=== PATIENT | male | born 1985 | race Caucasian/White ===

== ENCOUNTER 2017-10-05 05:38 | Emergency (ER) | payer OTHER ==
[2017-10-05] MEDS: predniSONE 20 MG TAB PO (06:52)
[2017-10-05] MEDS: ACETAMINOPHEN 325 MG TAB PO (06:52)
[2017-10-05] MEDS: SOD CHLORIDE 0.9% 1,000 ML IV ×2 (06:59→08:31)
[2017-10-05] MEDS: ALBUTEROL 0.5% (NEB) 2.5 MG/0.5 ML AMP INH (07:03)
[2017-10-05] MEDS: IPRATROPIUM (NEB) 0.5 MG/2.5 ML AMP INH (07:03)
[2017-10-05] MEDS: LORAZEPAM 2 MG INJ IV (09:00)
== END 2017-10-05 10:06 | disposition home or self-care (01) ==
LOC: E/R 05:38
DX: J20.9 Acute bronchitis, unspecified (principal); R00.0 Tachycardia, unspecified; F10.230 Alcohol dependence with withdrawal, uncomplicated; I10 Essential (primary) hypertension; E66.9 Obesity, unspecified; Z87.891 Personal history of nicotine dependence
CPT/HCPCS: 71045; 93005; 94644; 96374; 99284-25

== ENCOUNTER 2018-01-27 02:37 | Emergency (ER) | payer OTHER | END 2018-01-27 04:02 | disposition home or self-care (01) | LOC: FTE 02:37 | DX: L73.9 Follicular disorder, unspecified (principal); M54.5 Low back pain; J20.9 Acute bronchitis, unspecified; I10 Essential (primary) hypertension; F17.210 Nicotine dependence, cigarettes, uncomplicated | CPT/HCPCS: 99284; Z7502 ==

== ENCOUNTER 2018-01-28 07:46 | Inpatient (IN) | payer OTHER ==
[2018-01-28] MEDS ORDERED: ONDANSETRON 4 MG INJ IV ×3 (08:10→14:00)
[2018-01-28] MEDS ORDERED: SOD CHLORIDE 0.9% 1,000 ML IV (08:10)
[2018-01-28] MEDS ORDERED: morphine 4 MG/ML VIAL IV (08:10)
[2018-01-28 09:12] LABS: ADD MAN DIFF? NO
[2018-01-28 09:14] LABS: WHITE BLOOD COUNT 6.8 10^3/ul (4.8-10.8)
[2018-01-28 09:14] LABS: BASOPHILS % 0.4 % (0.0-2.0); EOSINOPHILS # 0.2 10^3/ul (0.0-0.5); EOSINOPHILS % 2.4 % (0.0-7.0); HEMATOCRIT 43.8 % (42.0-52.0); HEMOGLOBIN 15.4 g/dl (14.0-18.0); LYMPHOCYTES # 1.9 10^3/ul (0.8-2.9); LYMPHOCYTES % 28.1 % (15.0-51.0); MEAN CORPUSCULAR HEMOGLOBIN 30.4 pg (29.0-33.0); MEAN CORPUSCULAR HGB CONC 35.2 g/dl (32.0-37.0); MEAN CORPUSCULAR VOLUME 86.4 fl (82.0-101.0); MEAN PLATELET VOLUME 8.9 fl (7.4-10.4); MONOCYTE # 0.4 10^3/ul (0.3-0.9); MONOCYTES % 5.3 % (0.0-11.0); NEUTROPHIL # 4.3 10^3/ul (1.6-7.5); NEUTROPHILS % 63.5 % (39.0-77.0); PLATELET COUNT 348 10^3/UL (140-415); RED BLOOD COUNT 5.07 10^6/ul (4.70-6.10); RED CELL DISTRIBUTION WIDTH 14.5 % (11.5-14.5)
[2018-01-28 09:19] LABS: ADD UMIC YES; UR ASCORBIC ACID NEGATIVE (NEGATIVE); UR BILIRUBIN (Dip) NEGATIVE (NEGATIVE); UR BLOOD (Dip) NEGATIVE (NEGATIVE); UR CLARITY CLEAR (CLEAR); UR COLOR YELLOW (YELLOW); UR GLUCOSE (Dip) NEGATIVE (NEGATIVE); UR KETONES (Dip) NEGATIVE (NEGATIVE); UR LEUKOCYTE ESTERASE (Dip) NEGATIVE Leu/ul (NEGATIVE); UR MUCUS FEW /HPF (NONE SEEN); UR NITRITE (Dip) NEGATIVE (NEGATIVE); UR RBC 0 /HPF (0-5); UR SPECIFIC GRAVITY (Dip) 1.017 (1.003-1.030); UR TOTAL PROTEIN (Dip) 2+ mg/dl (NEGATIVE); UR UROBILINOGEN (Dip) NEGATIVE (NEGATIVE); UR WBC 0 /HPF (0-5)
[2018-01-28 09:32] LABS: ALANINE AMINOTRANSFERASE 131 IU/L (13-69); ALBUMIN 5.2 g/dl (3.3-4.9); ALKALINE PHOSPHATASE 106 IU/L (42-121); ANION GAP 21 (8-16); ASPARTATE AMINO TRANSFERASE 90 IU/L (15-46); BILIRUBIN,INDIRECT 0.4 mg/dl (0-1.1); BILIRUBIN,TOTAL 0.4 mg/dl (0.2-1.3); BLOOD UREA NITROGEN 13 mg/dl (7-20); CALCIUM 9.8 mg/dl (8.4-10.2); CARBON DIOXIDE 23 mmol/L (21-31); CHLORIDE 106 mmol/L (97-110); CREATININE 0.73 mg/dl (0.61-1.24); GLUCOSE 118 mg/dl (70-220); POTASSIUM 4.2 mmol/L (3.5-5.1); SODIUM 146 mmol/L (135-144); TOTAL PROTEIN 8.9 g/dl (6.1-8.1)
[2018-01-28 10:05] LABS: LIPASE 6579 U/L (23-300)
[2018-01-28] MEDS: SOD CHLORIDE 0.9% 1,000 ML IV ×3 (10:17→22:33)
[2018-01-28] MEDS: ONDANSETRON 4 MG INJ IV (11:13)
[2018-01-28] MEDS: morphine 4 MG/ML VIAL IV (11:13)
[2018-01-28] MEDS ORDERED: ACETAMINOPHEN 325 MG TAB PO (13:00)
[2018-01-28] MEDS: HYDROmorphONE 2 MG/ML SYG IV (13:17)
[2018-01-28] MEDS ORDERED: NACL 0.9% 3 ML SYG IV (14:00)
[2018-01-28] MEDS: HYDROmorphONE 0.5 MG/0.5 ML SYG IV ×3 (14:28→21:08)
[2018-01-28] MEDS ORDERED: LORAZEPAM 2 MG INJ IV (15:30)
[2018-01-28 15:44] LABS: FREE T4 (FREE THYROXINE) 0.73 ng/dl (0.79-2.35)
[2018-01-28 15:56] LABS: HEMOGLOBIN A1C 5.7 % (0-5.9)
[2018-01-28] MEDS: CHLORDIAZEPOXIDE 25 MG CAP PO ×2 (16:21→21:14)
[2018-01-28 18:51] LABS: AMPHETAMINE/METHAMPHETAMINE Negative (NEGATIVE); BARBITURATES Negative (NEGATIVE); BENZODIAZEPINES Negative (NEGATIVE); CANNABINOIDS Negative (NEGATIVE); COCAINE Negative (NEGATIVE); OPIATES Positive (NEGATIVE)
[2018-01-29] MEDS: HYDROmorphONE 0.5 MG/0.5 ML SYG IV ×5 (01:32→19:53)
[2018-01-29 05:35] LABS: ADD MAN DIFF? NO
[2018-01-29] MEDS: SOD CHLORIDE 0.9% 1,000 ML IV ×3 (05:41→21:43)
[2018-01-29 05:45] LABS: BASOPHILS % 0.5 % (0.0-2.0); EOSINOPHILS # 0.1 10^3/ul (0.0-0.5); HEMATOCRIT 39.8 % (42.0-52.0); HEMOGLOBIN 13.6 g/dl (14.0-18.0); LYMPHOCYTES # 1.1 10^3/ul (0.8-2.9); MEAN CORPUSCULAR HEMOGLOBIN 30.2 pg (29.0-33.0); MEAN CORPUSCULAR HGB CONC 34.2 g/dl (32.0-37.0); MEAN CORPUSCULAR VOLUME 88.2 fl (82.0-101.0); MONOCYTE # 0.4 10^3/ul (0.3-0.9); MONOCYTES % 7.5 % (0.0-11.0); NEUTROPHIL # 4.2 10^3/ul (1.6-7.5); NEUTROPHILS % 71.8 % (39.0-77.0); PLATELET COUNT 230 10^3/UL (140-415); RED BLOOD COUNT 4.51 10^6/ul (4.70-6.10); RED CELL DISTRIBUTION WIDTH 14.2 % (11.5-14.5)
[2018-01-29 05:45] LABS: WHITE BLOOD COUNT 5.9 10^3/ul (4.8-10.8)
[2018-01-29 06:05] LABS: PHOSPHORUS 4.1 mg/dl (2.5-4.9)
[2018-01-29 06:05] LABS: CHOL/HDL RATIO 3.3 RATIO; CHOLESTEROL 196 mg/dl (100-200); HDL CHOLESTEROL 59 mg/dl (28-63); LDL CHOLESTEROL,CALCULATED 73 mg/dl; MAGNESIUM 1.2 mg/dl (1.7-2.5); TRIGLYCERIDES 321 mg/dl (0-149)
[2018-01-29 06:16] LABS: ALANINE AMINOTRANSFERASE 89 IU/L (13-69); ALBUMIN 4.2 g/dl (3.3-4.9); ALBUMIN/GLOBULIN RATIO 1.27; ALKALINE PHOSPHATASE 101 IU/L (42-121); AMYLASE 156 U/L (11-123); ANION GAP 15 (8-16); ASPARTATE AMINO TRANSFERASE 58 IU/L (15-46); BILIRUBIN,INDIRECT 1.3 mg/dl (0-1.1); BILIRUBIN,TOTAL 1.3 mg/dl (0.2-1.3); BLOOD UREA NITROGEN 9 mg/dl (7-20); CARBON DIOXIDE 23 mmol/L (21-31); CHLORIDE 106 mmol/L (97-110); CREATININE 0.59 mg/dl (0.61-1.24); GLUCOSE 100 mg/dl (70-220); POTASSIUM 3.9 mmol/L (3.5-5.1); SODIUM 140 mmol/L (135-144); TOTAL PROTEIN 7.5 g/dl (6.1-8.1)
[2018-01-29 06:41] LABS: LIPASE 2477 U/L (23-300)
[2018-01-29] MEDS: CHLORDIAZEPOXIDE 25 MG CAP PO ×3 (08:22→21:03)
[2018-01-29] MEDS: AMLODIPINE 5 MG TAB PO (08:22)
[2018-01-29] MEDS: FISH OIL 1,000 MG CAP PO ×2 (08:23→21:03)
[2018-01-29] MEDS: MAGNESIUM SULFATE 2 GM/50 ML 50 ML IVPB ×2 (08:23→10:53)
[2018-01-29] MEDS: MULTIVITAMINS 10 ML, THIAMINE 100 MG, FOLIC ACID 1 MG in SOD CHLORIDE 0.9% 1,000 ML IVPB (08:24)
[2018-01-29] MEDS ORDERED: hydrALAzine 20 MG INJ IV (08:30)
[2018-01-29] MEDS: traMADol 50 MG TAB PO (09:02)
[2018-01-30] MEDS: HYDROmorphONE 0.5 MG/0.5 ML SYG IV ×3 (00:08→08:58)
[2018-01-30] MEDS: SOD CHLORIDE 0.9% 1,000 ML IV ×3 (02:32→20:30)
[2018-01-30 05:39] LABS: ADD MAN DIFF? NO
[2018-01-30 05:45] LABS: BASOPHILS % 0.2 % (0.0-2.0); EOSINOPHILS # 0.2 10^3/ul (0.0-0.5); EOSINOPHILS % 5.2 % (0.0-7.0); HEMATOCRIT 37.4 % (42.0-52.0); LYMPHOCYTES % 20.6 % (15.0-51.0); MEAN CORPUSCULAR HEMOGLOBIN 30.5 pg (29.0-33.0); MEAN CORPUSCULAR HGB CONC 34.8 g/dl (32.0-37.0); MEAN CORPUSCULAR VOLUME 87.8 fl (82.0-101.0); MEAN PLATELET VOLUME 9.2 fl (7.4-10.4); MONOCYTE # 0.3 10^3/ul (0.3-0.9); MONOCYTES % 6.3 % (0.0-11.0); NEUTROPHIL # 3.1 10^3/ul (1.6-7.5); NEUTROPHILS % 67.5 % (39.0-77.0); PLATELET COUNT 203 10^3/UL (140-415); RED BLOOD COUNT 4.26 10^6/ul (4.70-6.10); RED CELL DISTRIBUTION WIDTH 13.7 % (11.5-14.5)
[2018-01-30 05:45] LABS: WHITE BLOOD COUNT 4.6 10^3/ul (4.8-10.8)
[2018-01-30 06:05] LABS: PHOSPHORUS 3.2 mg/dl (2.5-4.9)
[2018-01-30 06:05] LABS: MAGNESIUM 1.8 mg/dl (1.7-2.5)
[2018-01-30 06:10] LABS: ALANINE AMINOTRANSFERASE 81 IU/L (13-69); ALBUMIN 4.2 g/dl (3.3-4.9); ALKALINE PHOSPHATASE 108 IU/L (42-121); AMYLASE 65 U/L (11-123); ANION GAP 17 (8-16); ASPARTATE AMINO TRANSFERASE 65 IU/L (15-46); BLOOD UREA NITROGEN 6 mg/dl (7-20); CARBON DIOXIDE 23 mmol/L (21-31); CHLORIDE 105 mmol/L (97-110); CREATININE 0.58 mg/dl (0.61-1.24); GLUCOSE 83 mg/dl (70-220); LIPASE 486 U/L (23-300); POTASSIUM 3.9 mmol/L (3.5-5.1); SODIUM 141 mmol/L (135-144); TOTAL PROTEIN 7.7 g/dl (6.1-8.1)
[2018-01-30] MEDS: MULTIVITAMINS 10 ML, THIAMINE 100 MG, FOLIC ACID 1 MG in SOD CHLORIDE 0.9% 1,000 ML IVPB (08:57)
[2018-01-30] MEDS: FISH OIL 1,000 MG CAP PO ×2 (08:58→20:29)
[2018-01-30] MEDS: CHLORDIAZEPOXIDE 25 MG CAP PO ×3 (08:58→20:29)
[2018-01-30] MEDS: AMLODIPINE 5 MG TAB PO (08:58)
[2018-01-31] MEDS: SOD CHLORIDE 0.9% 1,000 ML IV ×3 (04:36→21:57)
[2018-01-31] MEDS: HYDROmorphONE 0.5 MG/0.5 ML SYG IV (04:40)
[2018-01-31 06:22] LABS: ADD MAN DIFF? NO
[2018-01-31 06:35] LABS: BASOPHILS % 0.4 % (0.0-2.0); EOSINOPHILS # 0.2 10^3/ul (0.0-0.5); EOSINOPHILS % 4.6 % (0.0-7.0); HEMOGLOBIN 12.9 g/dl (14.0-18.0); LYMPHOCYTES # 0.9 10^3/ul (0.8-2.9); LYMPHOCYTES % 18.8 % (15.0-51.0); MEAN CORPUSCULAR HEMOGLOBIN 30.4 pg (29.0-33.0); MEAN CORPUSCULAR HGB CONC 34.9 g/dl (32.0-37.0); MEAN CORPUSCULAR VOLUME 87.3 fl (82.0-101.0); MEAN PLATELET VOLUME 9.4 fl (7.4-10.4); MONOCYTE # 0.4 10^3/ul (0.3-0.9); MONOCYTES % 7.8 % (0.0-11.0); NEUTROPHIL # 3.4 10^3/ul (1.6-7.5); NEUTROPHILS % 67.8 % (39.0-77.0); PLATELET COUNT 225 10^3/UL (140-415); RED BLOOD COUNT 4.24 10^6/ul (4.70-6.10); RED CELL DISTRIBUTION WIDTH 13.4 % (11.5-14.5)
[2018-01-31 06:52] LABS: MAGNESIUM 1.7 mg/dl (1.7-2.5)
[2018-01-31 06:52] LABS: PHOSPHORUS 3.2 mg/dl (2.5-4.9)
[2018-01-31 06:59] LABS: ALANINE AMINOTRANSFERASE 86 IU/L (13-69); ALBUMIN 4.3 g/dl (3.3-4.9); ALBUMIN/GLOBULIN RATIO 1.19; ALKALINE PHOSPHATASE 129 IU/L (42-121); AMYLASE 51 U/L (11-123); ANION GAP 19 (8-16); ASPARTATE AMINO TRANSFERASE 96 IU/L (15-46); BILIRUBIN,INDIRECT 0.6 mg/dl (0-1.1); BILIRUBIN,TOTAL 0.6 mg/dl (0.2-1.3); BLOOD UREA NITROGEN 5 mg/dl (7-20); CALCIUM 9.2 mg/dl (8.4-10.2); CARBON DIOXIDE 20 mmol/L (21-31); CHLORIDE 105 mmol/L (97-110); CREATININE 0.58 mg/dl (0.61-1.24); GLUCOSE 84 mg/dl (70-220); LIPASE 347 U/L (23-300); SODIUM 140 mmol/L (135-144); TOTAL PROTEIN 7.9 g/dl (6.1-8.1)
[2018-01-31] MEDS: FISH OIL 1,000 MG CAP PO ×2 (08:13→20:35)
[2018-01-31] MEDS: AMLODIPINE 5 MG TAB PO (08:14)
[2018-01-31] MEDS: CHLORDIAZEPOXIDE 25 MG CAP PO ×4 (08:14→20:36)
[2018-01-31] MEDS: MULTIVITAMINS 10 ML, THIAMINE 100 MG, FOLIC ACID 1 MG in SOD CHLORIDE 0.9% 1,000 ML IVPB (08:16)
[2018-01-31 12:26] LABS: HAAIG REFLEX REFLEX FILED
[2018-01-31 13:18] LABS: HEPATITIS B SURFACE ANTIGEN NEGATIVE (NEGATIVE)
[2018-01-31 13:36] LABS: HEPATITIS B CORE ANTIBODY NEGATIVE (NEGATIVE); HEPATITIS C VIRAL ANTIBODY NEGATIVE (NEGATIVE)
[2018-02-01 06:12] LABS: ADD MAN DIFF? NO
[2018-02-01 06:16] LABS: BASOPHILS % 0.2 % (0.0-2.0); EOSINOPHILS # 0.2 10^3/ul (0.0-0.5); EOSINOPHILS % 5.1 % (0.0-7.0); HEMATOCRIT 37.5 % (42.0-52.0); HEMOGLOBIN 12.8 g/dl (14.0-18.0); LYMPHOCYTES # 0.9 10^3/ul (0.8-2.9); LYMPHOCYTES % 20.7 % (15.0-51.0); MEAN CORPUSCULAR HGB CONC 34.1 g/dl (32.0-37.0); MEAN PLATELET VOLUME 9.1 fl (7.4-10.4); MONOCYTE # 0.4 10^3/ul (0.3-0.9); MONOCYTES % 9.7 % (0.0-11.0); NEUTROPHIL # 2.9 10^3/ul (1.6-7.5); NEUTROPHILS % 63.9 % (39.0-77.0); PLATELET COUNT 238 10^3/UL (140-415); RED BLOOD COUNT 4.26 10^6/ul (4.70-6.10); RED CELL DISTRIBUTION WIDTH 13.6 % (11.5-14.5)
[2018-02-01 06:16] LABS: WHITE BLOOD COUNT 4.5 10^3/ul (4.8-10.8)
[2018-02-01 06:46] LABS: LIPASE 344 U/L (23-300)
[2018-02-01 06:50] LABS: ANION GAP 14 (8-16); BLOOD UREA NITROGEN 4 mg/dl (7-20); CALCIUM 9.1 mg/dl (8.4-10.2); CARBON DIOXIDE 22 mmol/L (21-31); CHLORIDE 110 mmol/L (97-110); CREATININE 0.61 mg/dl (0.61-1.24); GLUCOSE 100 mg/dl (70-220); SODIUM 142 mmol/L (135-144)
[2018-02-01] MEDS: SOD CHLORIDE 0.9% 1,000 ML IV ×2 (06:51→13:43)
[2018-02-01] MEDS: FISH OIL 1,000 MG CAP PO (08:46)
[2018-02-01] MEDS: CHLORDIAZEPOXIDE 25 MG CAP PO ×2 (08:46→12:45)
[2018-02-01] MEDS: AMLODIPINE 5 MG TAB PO (08:47)
[2018-02-01] MEDS: MULTIVITAMINS 10 ML, THIAMINE 100 MG, FOLIC ACID 1 MG in SOD CHLORIDE 0.9% 1,000 ML IVPB (11:47)
== END 2018-02-01 16:10 | disposition home or self-care (01) | DRG 439 ==
LOC: FTE 07:46 → MS2 12:43
PROVIDERS: Internal Medicine
DX: K85.20 Alcohol induced acute pancreatitis without necrosis or infection (principal); Z68.41 Body mass index [BMI] 40.0-44.9, adult; E66.9 Obesity, unspecified; Z71.3 Dietary counseling and surveillance; I10 Essential (primary) hypertension; E78.1 Pure hyperglyceridemia; E88.89 Other specified metabolic disorders; K76.89 Other specified diseases of liver; E11.9 Type 2 diabetes mellitus without complications
CPT/HCPCS: 71045; 74176; 80048; 80053; 80061; 80307; 81001; 82150; 83036; 83690; 83735; 84100; 84439; 84443; 85025; 86704; 86709; 86803; 87340; 93005; 96361; 96374; 96375; 99285-25

== ENCOUNTER 2018-06-01 21:28 | Inpatient (IN) | payer OTHER ==
[2018-06-01] MEDS: LIDOCAINE/MYLANTA 40 ML BTL PO (22:12)
[2018-06-01] MEDS: ONDANSETRON 4 MG INJ IV ×2 (22:12→23:55)
[2018-06-01] MEDS: BELLADONNA/PHENOBARBITAL TAB PO (22:12)
[2018-06-01] MEDS: LORAZEPAM 2 MG INJ IV (22:12)
[2018-06-01] MEDS: FUROSEMIDE 40 MG INJ IV (22:12)
[2018-06-01] MEDS: SOD CHLORIDE 0.9% 1,000 ML IV (22:13)
[2018-06-01 22:28] LABS: ADD MAN DIFF? NO
[2018-06-01 22:33] LABS: ADD UMIC YES; UR ASCORBIC ACID NEGATIVE (NEGATIVE); UR BILIRUBIN (Dip) NEGATIVE (NEGATIVE); UR BLOOD (Dip) 1+ mg/dL (NEGATIVE); UR CLARITY CLEAR (CLEAR); UR COLOR YELLOW (YELLOW); UR GLUCOSE (Dip) NEGATIVE (NEGATIVE); UR KETONES (Dip) TRACE mg/dL (NEGATIVE); UR LEUKOCYTE ESTERASE (Dip) NEGATIVE Leu/ul (NEGATIVE); UR MUCUS FEW /HPF (NONE SEEN); UR NITRITE (Dip) NEGATIVE (NEGATIVE); UR RBC 0 /HPF (0-5); UR SPECIFIC GRAVITY (Dip) 1.023 (1.003-1.030); UR TOTAL PROTEIN (Dip) 3+ mg/dl (NEGATIVE); UR UROBILINOGEN (Dip) NEGATIVE (NEGATIVE); UR WBC 1 /HPF (0-5)
[2018-06-01 22:34] LABS: WHITE BLOOD COUNT 11.4 10^3/ul (4.8-10.8)
[2018-06-01 22:34] LABS: BASOPHILS % 0.3 % (0.0-2.0); EOSINOPHILS % 0.1 % (0.0-7.0); HEMATOCRIT 44.7 % (42.0-52.0); HEMOGLOBIN 15.9 g/dl (14.0-18.0); LYMPHOCYTES % 8.9 % (15.0-51.0); MEAN CORPUSCULAR HEMOGLOBIN 31.4 pg (29.0-33.0); MEAN CORPUSCULAR HGB CONC 35.6 g/dl (32.0-37.0); MEAN CORPUSCULAR VOLUME 88.3 fl (82.0-101.0); MEAN PLATELET VOLUME 9.2 fl (7.4-10.4); MONOCYTE # 0.5 10^3/ul (0.3-0.9); MONOCYTES % 4.3 % (0.0-11.0); NEUTROPHIL # 9.8 10^3/ul (1.6-7.5); PLATELET COUNT 242 10^3/UL (140-415); RED BLOOD COUNT 5.06 10^6/ul (4.70-6.10); RED CELL DISTRIBUTION WIDTH 13.2 % (11.5-14.5)
[2018-06-01 22:49] LABS: ALANINE AMINOTRANSFERASE 136 IU/L (13-69); ALBUMIN 4.6 g/dl (3.3-4.9); ALBUMIN/GLOBULIN RATIO 1.21; ALKALINE PHOSPHATASE 142 IU/L (42-121); ANION GAP 22 (5-13); ASPARTATE AMINO TRANSFERASE 165 IU/L (15-46); BILIRUBIN,INDIRECT 0.7 mg/dl (0-1.1); BILIRUBIN,TOTAL 0.7 mg/dl (0.2-1.3); BLOOD UREA NITROGEN 11 mg/dl (7-20); CALCIUM 9.1 mg/dl (8.4-10.2); CARBON DIOXIDE 16 mmol/L (21-31); CHLORIDE 97 mmol/L (97-110); CREATININE 0.59 mg/dl (0.61-1.24); Estimated GFR > 60 mL/min (>60); GLUCOSE 134 mg/dl (70-220); POTASSIUM 3.7 mmol/L (3.5-5.1); SODIUM 135 mmol/L (135-144); TOTAL PROTEIN 8.4 g/dl (6.1-8.1)
[2018-06-01 22:50] LABS: INR 0.96; PROTIME 12.9 Sec (11.9-14.9)
[2018-06-01 22:55] LABS: AMPHETAMINE/METHAMPHETAMINE Negative (NEGATIVE); BARBITURATES Negative (NEGATIVE); BENZODIAZEPINES Negative (NEGATIVE); CANNABINOIDS Negative (NEGATIVE); COCAINE Negative (NEGATIVE); OPIATES Negative (NEGATIVE)
[2018-06-01 23:03] LABS: B-TYPE NATRIURETIC PEPTIDE 224 PG/ML (0-125); TROPONIN-I < 0.012 ng/ml (0.000-0.120)
[2018-06-01 23:13] LABS: LIPASE 4954 U/L (23-300)
[2018-06-01] MEDS: FENTAnyl 50 MCG/ML VIAL IV (23:55)
[2018-06-02 00:16] LABS: LACTATE DEHYDROGENASE 970 IU/L (313-618)
[2018-06-02] MEDS ORDERED: ACETAMINOPHEN 325 MG TAB PO (00:30)
[2018-06-02] MEDS: FOLIC ACID 1 MG TAB PO (01:05)
[2018-06-02] MEDS: THIAMINE 100 MG TAB PO ×2 (01:11→08:26)
[2018-06-02] MEDS ORDERED: NACL 0.9% 3 ML SYG IV (01:30)
[2018-06-02] MEDS: HYDROmorphONE 0.5 MG/0.5 ML SYG IV ×3 (01:54→23:43)
[2018-06-02] MEDS: LACTATED RINGER'S 1,000 ML IV ×2 (02:26→06:45)
[2018-06-02] MEDS: HYDROCODONE/APAP (5/325) TAB PO (02:31)
[2018-06-02] MEDS: ONDANSETRON 4 MG INJ IV ×2 (03:34→08:26)
[2018-06-02] MEDS: HYDROmorphONE 2 MG/ML SYG IV ×6 (04:15→18:08)
[2018-06-02] MEDS: PANTOPRAZOLE 40 MG INJ IV (06:45)
[2018-06-02] MEDS: NICOTINE (14 MG/24 HR) PATCH TRANSDERM (08:25)
[2018-06-02] MEDS: AMLODIPINE 10 MG TAB PO (08:30)
[2018-06-02] MEDS: LISINOPRIL 20 MG TAB PO (08:30)
[2018-06-02] MEDS: SOD CHLORIDE 0.9% 1,000 ML IV ×2 (10:00→20:18)
[2018-06-02] MEDS: MULTIVITAMINS 10 ML, THIAMINE 100 MG, FOLIC ACID 1 MG in SOD CHLORIDE 0.9% 1,000 ML IVPB (12:45)
[2018-06-02] MEDS: CHLORDIAZEPOXIDE 25 MG CAP PO ×2 (12:45→20:16)
[2018-06-02] MEDS: LORAZEPAM 2 MG INJ IV (19:52)
[2018-06-02] MEDS: ATORVASTATIN 10 MG TAB PO (20:16)
[2018-06-03] MEDS: LORAZEPAM 2 MG INJ IV (01:04)
[2018-06-03] MEDS: HYDROmorphONE 2 MG/ML SYG IV ×2 (03:24→05:36)
[2018-06-03] MEDS: SOD CHLORIDE 0.9% 1,000 ML IV ×3 (03:25→16:39)
[2018-06-03] MEDS: PANTOPRAZOLE 40 MG INJ IV (05:36)
[2018-06-03 05:41] LABS: ABNORMAL IP MESSAGE 1; HEMATOCRIT 43.7 % (42.0-52.0); HEMOGLOBIN 15.5 g/dl (14.0-18.0); MEAN CORPUSCULAR HEMOGLOBIN 31.8 pg (29.0-33.0); MEAN CORPUSCULAR HGB CONC 35.5 g/dl (32.0-37.0); MEAN CORPUSCULAR VOLUME 89.7 fl (82.0-101.0); MEAN PLATELET VOLUME 9.9 fl (7.4-10.4); PLATELET COUNT 175 10^3/UL (140-415); POSITIVE DIFF @See below; RED BLOOD COUNT 4.87 10^6/ul (4.70-6.10); RED CELL DISTRIBUTION WIDTH 13.3 % (11.5-14.5)
[2018-06-03 05:41] LABS: WHITE BLOOD COUNT 8.5 10^3/ul (4.8-10.8)
[2018-06-03 05:52] LABS: ADD MAN DIFF? YES
[2018-06-03 06:21] LABS: ALANINE AMINOTRANSFERASE 73 IU/L (13-69); ALBUMIN 3.4 g/dl (3.3-4.9); ALBUMIN/GLOBULIN RATIO 1.47; ALKALINE PHOSPHATASE 102 IU/L (42-121); ANION GAP 14 (5-13); ASPARTATE AMINO TRANSFERASE 106 IU/L (15-46); BILIRUBIN,INDIRECT 1.2 mg/dl (0-1.1); BILIRUBIN,TOTAL 1.2 mg/dl (0.2-1.3); BLOOD UREA NITROGEN 23 mg/dl (7-20); CALCIUM 6.7 mg/dl (8.4-10.2); CARBON DIOXIDE 20 mmol/L (21-31); CHLORIDE 100 mmol/L (97-110); CREATININE 2.68 mg/dl (0.61-1.24); Estimated GFR 28 mL/min (>60); GLUCOSE 113 mg/dl (70-220); PHOSPHORUS 4.6 mg/dl (2.5-4.9); POTASSIUM 4.3 mmol/L (3.5-5.1); SODIUM 134 mmol/L (135-144); TOTAL PROTEIN 5.7 g/dl (6.1-8.1)
[2018-06-03 06:57] LABS: LIPASE 3843 U/L (23-300)
[2018-06-03 07:27] LABS: BAND NEUTROPHILS #M 2.6 10^3/ul (0.0-0.6); BAND NEUTROPHILS % (M) 31 % (0-4); EOSINOPHILS % (M) 1 % (0-7); LYMPHOCYTES #M 0.5 10^3/ul (0.8-2.9); LYMPHOCYTES % (M) 7 % (15-51); METAMYELOCYTES #M 0.5 10^3/ul (0.0-0.0); METAMYELOCYTES %M 7 % (0-0); MONOCYTE #M 0.1 10^3/ul (0.3-0.9); MONOCYTES % (M) 2 % (0-11); MYELOCYTES % (M) 1 % (0-0); PLATELET ESTIMATE NORMAL; REACTIVE LYMPHOCYTES% (M) 1 % (0-0); SEG NEUT #M 4.5 10^3/ul (1.6-7.5); SEGMENTED NEUTROPHILS (M) % 50 % (39-77); SMUDGE%M 71 % (0-0)
[2018-06-03] MEDS: THIAMINE 100 MG TAB PO (08:07)
[2018-06-03] MEDS: NICOTINE (14 MG/24 HR) PATCH TRANSDERM (08:07)
[2018-06-03] MEDS: AMLODIPINE 10 MG TAB PO (08:08)
[2018-06-03] MEDS: MULTIVITAMINS 10 ML, THIAMINE 100 MG, FOLIC ACID 1 MG in SOD CHLORIDE 0.9% 1,000 ML IVPB ×2 (08:23→12:12)
[2018-06-03] MEDS: HYDROCODONE/APAP (5/325) TAB PO ×2 (08:54→19:37)
[2018-06-03 09:04] LABS: HEMOGLOBIN A1C 5.1 % (0-5.9)
[2018-06-03] MEDS ORDERED: LORAZEPAM 2 MG INJ IV (11:00)
[2018-06-03] MEDS: SOD CHLORIDE 0.9% 500 ML IV (11:03)
[2018-06-03] MEDS: morphine 2 MG INJ IV ×3 (12:12→21:25)
[2018-06-03] MEDS: CHLORDIAZEPOXIDE 25 MG CAP PO ×2 (12:12→21:24)
[2018-06-03] MEDS: DEXTROSE 5% IVPB (12:56)
[2018-06-03] MEDS: MAGNESIUM SULFATE IVPB (12:56)
[2018-06-03] MEDS: ONDANSETRON 4 MG INJ IV (13:26)
[2018-06-03] MEDS: ATORVASTATIN 10 MG TAB PO (21:24)
[2018-06-04] MEDS: HYDROCODONE/APAP (5/325) TAB PO ×4 (00:36→20:07)
[2018-06-04 01:39] LABS: ADD UMIC YES; UR ASCORBIC ACID NEGATIVE (NEGATIVE); UR BILIRUBIN (Dip) NEGATIVE (NEGATIVE); UR BLOOD (Dip) 1+ mg/dL (NEGATIVE); UR CLARITY SLIGHTLY CLOUDY (CLEAR); UR COLOR AMBER (YELLOW); UR GLUCOSE (Dip) NEGATIVE (NEGATIVE); UR KETONES (Dip) TRACE mg/dL (NEGATIVE); UR LEUKOCYTE ESTERASE (Dip) NEGATIVE Leu/ul (NEGATIVE); UR NITRITE (Dip) NEGATIVE (NEGATIVE); UR RBC 0 /HPF (0-5); UR SPECIFIC GRAVITY (Dip) 1.017 (1.003-1.030); UR TOTAL PROTEIN (Dip) 1+ mg/dl (NEGATIVE); UR UROBILINOGEN (Dip) 1+ mg/dL (NEGATIVE); UR WBC 1 /HPF (0-5)
[2018-06-04] MEDS: morphine 2 MG INJ IV ×6 (01:57→22:35)
[2018-06-04] MEDS: SOD CHLORIDE 0.9% 1,000 ML IV ×4 (01:57→17:29)
[2018-06-04] MEDS: PANTOPRAZOLE 40 MG INJ IV (06:04)
[2018-06-04 06:41] LABS: LIPASE 1718 U/L (23-300)
[2018-06-04 06:46] LABS: ANION GAP 11 (5-13); BLOOD UREA NITROGEN 20 mg/dl (7-20); CALCIUM 7.1 mg/dl (8.4-10.2); CARBON DIOXIDE 23 mmol/L (21-31); CHLORIDE 99 mmol/L (97-110); CREATININE 1.19 mg/dl (0.61-1.24); Estimated GFR > 60 mL/min (>60); GLUCOSE 101 mg/dl (70-220); MAGNESIUM 2.6 mg/dl (1.7-2.5); PHOSPHORUS 2.3 mg/dl (2.5-4.9); POTASSIUM 3.6 mmol/L (3.5-5.1); SODIUM 133 mmol/L (135-144)
[2018-06-04] MEDS: MULTIVITAMINS 10 ML, THIAMINE 100 MG, FOLIC ACID 1 MG in SOD CHLORIDE 0.9% 1,000 ML IVPB (09:03)
[2018-06-04] MEDS: THIAMINE 100 MG TAB PO (09:08)
[2018-06-04] MEDS: NICOTINE (14 MG/24 HR) PATCH TRANSDERM (09:08)
[2018-06-04] MEDS: CHLORDIAZEPOXIDE 25 MG CAP PO ×3 (09:09→20:07)
[2018-06-04] MEDS: AMLODIPINE 10 MG TAB PO (09:09)
[2018-06-04 10:55] LABS: ALANINE AMINOTRANSFERASE 47 IU/L (13-69); ALBUMIN 3.3 g/dl (3.3-4.9); ALKALINE PHOSPHATASE 163 IU/L (42-121); ASPARTATE AMINO TRANSFERASE 64 IU/L (15-46); BILIRUBIN,INDIRECT 0.8 mg/dl (0-1.1); BILIRUBIN,TOTAL 0.8 mg/dl (0.2-1.3); TOTAL PROTEIN 6.1 g/dl (6.1-8.1)
[2018-06-04] MEDS: MAGNESIUM HYDROXIDE 30ML CUP PO ×2 (12:12→17:34)
[2018-06-04] MEDS: DOCUSATE SODIUM 100 MG CAP PO ×2 (12:12→20:07)
[2018-06-04] MEDS: POTASSIUM PHOSPHATE 15 MM in SOD CHLORIDE 0.9% 250 ML IVPB (13:28)
[2018-06-04] MEDS: ATORVASTATIN 10 MG TAB PO (20:07)
[2018-06-05] MEDS: SOD CHLORIDE 0.9% 1,000 ML IV ×7 (00:09→22:08)
[2018-06-05] MEDS: morphine 2 MG INJ IV ×6 (01:34→23:36)
[2018-06-05 05:31] LABS: HEMATOCRIT 32.3 % (42.0-52.0); HEMOGLOBIN 11.4 g/dl (14.0-18.0); MEAN CORPUSCULAR HEMOGLOBIN 32.2 pg (29.0-33.0); MEAN CORPUSCULAR HGB CONC 35.3 g/dl (32.0-37.0); MEAN CORPUSCULAR VOLUME 91.2 fl (82.0-101.0); MEAN PLATELET VOLUME 9.5 fl (7.4-10.4); NUCLEATED RED BLOOD CELLS% 0.5 /100WBC (0.0-0.0); PLATELET COUNT 171 10^3/UL (140-415); POSITIVE DIFF @See below; RED BLOOD COUNT 3.54 10^6/ul (4.70-6.10); RED CELL DISTRIBUTION WIDTH 13.4 % (11.5-14.5)
[2018-06-05 05:31] LABS: WHITE BLOOD COUNT 7.9 10^3/ul (4.8-10.8)
[2018-06-05] MEDS: PANTOPRAZOLE 40 MG INJ IV (05:39)
[2018-06-05 06:01] LABS: ADD MAN DIFF? YES; ANION GAP 9 (5-13); BLOOD UREA NITROGEN 7 mg/dl (7-20); CALCIUM 8.1 mg/dl (8.4-10.2); CARBON DIOXIDE 25 mmol/L (21-31); CHLORIDE 98 mmol/L (97-110); CREATININE 0.65 mg/dl (0.61-1.24); Estimated GFR > 60 mL/min (>60); GLUCOSE 105 mg/dl (70-220); MAGNESIUM 1.9 mg/dl (1.7-2.5); PHOSPHORUS 1.7 mg/dl (2.5-4.9); POTASSIUM 3.6 mmol/L (3.5-5.1); SODIUM 132 mmol/L (135-144)
[2018-06-05 06:04] LABS: LIPASE 736 U/L (23-300)
[2018-06-05 07:17] LABS: ALANINE AMINOTRANSFERASE 41 IU/L (13-69); ALBUMIN 3.4 g/dl (3.3-4.9); ALKALINE PHOSPHATASE 213 IU/L (42-121); ANISOCYTOSIS 1+ (0-0); ASPARTATE AMINO TRANSFERASE 113 IU/L (15-46); BAND NEUTROPHILS #M 2.2 10^3/ul (0.0-0.6); BAND NEUTROPHILS % (M) 29 % (0-4); BILIRUBIN,INDIRECT 0.8 mg/dl (0-1.1); BILIRUBIN,TOTAL 0.8 mg/dl (0.2-1.3); ERYTHROBLAST% (NRBC) (M) 1 % (0-0); LYMPHOCYTES % (M) 13 % (15-51); MONOCYTE #M 0.3 10^3/ul (0.3-0.9); MONOCYTES % (M) 5 % (0-11); PLATELET ESTIMATE NORMAL; POLYCHROMASIA 1+ (0-0); PROMYELOCYTES #M 0.2 10^3/ul (0-0); PROMYELOCYTES % (M) 3 % (0-0); SEG NEUT #M 4.1 10^3/ul (1.6-7.5); SEGMENTED NEUTROPHILS (M) % 50 % (39-77); STOMATOCYTES 1+ (0-0); TOTAL PROTEIN 6.3 g/dl (6.1-8.1)
[2018-06-05] MEDS: THIAMINE 100 MG TAB PO (09:29)
[2018-06-05] MEDS: NICOTINE (14 MG/24 HR) PATCH TRANSDERM (09:29)
[2018-06-05] MEDS: DOCUSATE SODIUM 100 MG CAP PO ×2 (09:29→20:19)
[2018-06-05] MEDS: AMLODIPINE 10 MG TAB PO (09:29)
[2018-06-05] MEDS: CHLORDIAZEPOXIDE 25 MG CAP PO (09:29)
[2018-06-05] MEDS: POTASSIUM PHOSPHATE 20 MEQ in SOD CHLORIDE 0.9% 250 ML IVPB (10:12)
[2018-06-05] MEDS: MULTIVITAMINS 10 ML, THIAMINE 100 MG, FOLIC ACID 1 MG in SOD CHLORIDE 0.9% 1,000 ML IVPB (10:12)
[2018-06-05] MEDS ORDERED: SODIUM PHOSPHATE 15 MMOL in SOD CHLORIDE 0.9% 250 ML IVPB (11:00)
[2018-06-05] MEDS: HYDROCODONE/APAP (5/325) TAB PO ×2 (11:04→17:36)
[2018-06-05] MEDS: ATORVASTATIN 10 MG TAB PO (20:19)
[2018-06-06] MEDS: SOD CHLORIDE 0.9% 1,000 ML IV ×4 (03:42→17:19)
[2018-06-06] MEDS: morphine 2 MG INJ IV ×5 (03:42→21:16)
[2018-06-06 05:33] LABS: WHITE BLOOD COUNT 9.1 10^3/ul (4.8-10.8)
[2018-06-06 05:33] LABS: HEMOGLOBIN 11.2 g/dl (14.0-18.0); MEAN CORPUSCULAR VOLUME 91.4 fl (82.0-101.0); MEAN PLATELET VOLUME 9.1 fl (7.4-10.4); NUCLEATED RED BLOOD CELLS% 0.8 /100WBC (0.0-0.0); PLATELET COUNT 220 10^3/UL (140-415); POSITIVE DIFF @See below; RED CELL DISTRIBUTION WIDTH 13.2 % (11.5-14.5)
[2018-06-06 05:37] LABS: ADD MAN DIFF? YES
[2018-06-06] MEDS: PANTOPRAZOLE 40 MG INJ IV (05:47)
[2018-06-06 05:57] LABS: ANION GAP 14 (5-13); BLOOD UREA NITROGEN 3 mg/dl (7-20); CALCIUM 8.8 mg/dl (8.4-10.2); CARBON DIOXIDE 25 mmol/L (21-31); CHLORIDE 96 mmol/L (97-110); CREATININE 0.62 mg/dl (0.61-1.24); Estimated GFR > 60 mL/min (>60); GLUCOSE 97 mg/dl (70-220); MAGNESIUM 1.5 mg/dl (1.7-2.5); PHOSPHORUS 2.9 mg/dl (2.5-4.9); POTASSIUM 3.3 mmol/L (3.5-5.1); SODIUM 135 mmol/L (135-144)
[2018-06-06 05:59] LABS: LIPASE 702 U/L (23-300)
[2018-06-06 05:59] LABS: ALANINE AMINOTRANSFERASE 52 IU/L (13-69); ALBUMIN 3.3 g/dl (3.3-4.9); ALKALINE PHOSPHATASE 204 IU/L (42-121); ASPARTATE AMINO TRANSFERASE 62 IU/L (15-46); BILIRUBIN,INDIRECT 0.6 mg/dl (0-1.1); BILIRUBIN,TOTAL 0.6 mg/dl (0.2-1.3); TOTAL PROTEIN 5.4 g/dl (6.1-8.1)
[2018-06-06 06:52] LABS: ANISOCYTOSIS 1+ (0-0); BAND NEUTROPHILS % (M) 11 % (0-4); EOSINOPHILS % (M) 1 % (0-7); LYMPHOCYTES #M 0.7 10^3/ul (0.8-2.9); LYMPHOCYTES % (M) 8 % (15-51); MONOCYTE #M 0.9 10^3/ul (0.3-0.9); MONOCYTES % (M) 10 % (0-11); PLATELET ESTIMATE NORMAL; POLYCHROMASIA 1+ (0-0); PROMYELOCYTES #M 0.1 10^3/ul (0-0); PROMYELOCYTES % (M) 2 % (0-0); REACTIVE LYMPHOCYTES #M 0.1 10^3/ul (0.0-0.0); REACTIVE LYMPHOCYTES% (M) 2 % (0-0); SEG NEUT #M 6.1 10^3/ul (1.6-7.5); SEGMENTED NEUTROPHILS (M) % 66 % (39-77); SMUDGE%M 5 % (0-0)
[2018-06-06] MEDS: MULTIVITAMINS 10 ML, THIAMINE 100 MG, FOLIC ACID 1 MG in SOD CHLORIDE 0.9% 1,000 ML IVPB (08:17)
[2018-06-06] MEDS: DOCUSATE SODIUM 100 MG CAP PO ×2 (08:18→21:00)
[2018-06-06] MEDS: POTASSIUM CHLORIDE (SR) 20 MEQ TAB PO (09:03)
[2018-06-06] MEDS: THIAMINE 100 MG TAB PO (09:03)
[2018-06-06] MEDS: NICOTINE (14 MG/24 HR) PATCH TRANSDERM (09:03)
[2018-06-06] MEDS: AMLODIPINE 10 MG TAB PO (09:03)
[2018-06-06] MEDS: MAGNESIUM SULFATE 2 GM/50 ML 50 ML IVPB (10:53)
[2018-06-06] MEDS ORDERED: NICOTINE (7 MG/24 HR) PATCH TRANSDERM (11:00)
[2018-06-06] MEDS: CHLORDIAZEPOXIDE 5 MG CAP PO ×2 (12:50→21:16)
[2018-06-06 16:06] LABS: CREATININE, RANDOM URINE 161 mg/dL (20-320); MICROALBUMIN 6.3 mg/dL; MICROALBUMIN/CREATININE RATIO 39 (<30)
[2018-06-06] MEDS: ATORVASTATIN 10 MG TAB PO (21:16)
[2018-06-07] MEDS: morphine 2 MG INJ IV ×2 (01:04→05:06)
[2018-06-07] MEDS: SOD CHLORIDE 0.9% 1,000 ML IV ×2 (01:06→07:28)
[2018-06-07] MEDS: PANTOPRAZOLE 40 MG INJ IV (05:06)
[2018-06-07 06:42] LABS: ANION GAP 13 (5-13); BLOOD UREA NITROGEN 4 mg/dl (7-20); CALCIUM 8.7 mg/dl (8.4-10.2); CARBON DIOXIDE 25 mmol/L (21-31); CHLORIDE 97 mmol/L (97-110); CREATININE 0.64 mg/dl (0.61-1.24); Estimated GFR > 60 mL/min (>60); GLUCOSE 102 mg/dl (70-220); MAGNESIUM 1.6 mg/dl (1.7-2.5); PHOSPHORUS 3.3 mg/dl (2.5-4.9); POTASSIUM 3.1 mmol/L (3.5-5.1); SODIUM 135 mmol/L (135-144)
[2018-06-07 06:51] LABS: ALANINE AMINOTRANSFERASE 68 IU/L (13-69); ALBUMIN 3.6 g/dl (3.3-4.9); ALKALINE PHOSPHATASE 235 IU/L (42-121); ASPARTATE AMINO TRANSFERASE 131 IU/L (15-46); BILIRUBIN,INDIRECT 0.4 mg/dl (0-1.1); BILIRUBIN,TOTAL 0.4 mg/dl (0.2-1.3); TOTAL PROTEIN 6.2 g/dl (6.1-8.1)
[2018-06-07 07:11] LABS: LIPASE 642 U/L (23-300)
[2018-06-07 07:11] LABS: AMYLASE 77 U/L (11-123)
[2018-06-07] MEDS: POTASSIUM CHLORIDE (SR) 20 MEQ TAB PO (08:19)
[2018-06-07] MEDS: MULTIVITAMINS 10 ML, THIAMINE 100 MG, FOLIC ACID 1 MG in SOD CHLORIDE 0.9% 1,000 ML IVPB (08:19)
[2018-06-07] MEDS: CHLORDIAZEPOXIDE 5 MG CAP PO (08:19)
[2018-06-07] MEDS: THIAMINE 100 MG TAB PO (08:20)
[2018-06-07] MEDS: DOCUSATE SODIUM 100 MG CAP PO (08:20)
[2018-06-07] MEDS: AMLODIPINE 10 MG TAB PO (08:20)
[2018-06-07] MEDS: NICOTINE (14 MG/24 HR) PATCH TRANSDERM (08:20)
[2018-06-07] MEDS: HYDROCODONE/APAP (5/325) TAB PO (08:41)
[2018-06-07] MEDS: MAGNESIUM SULFATE 2 GM/50 ML 50 ML IVPB (10:02)
== END 2018-06-07 12:50 | disposition home or self-care (01) | DRG 438 ==
LOC: 6WM 06-03 09:01 → E/R 21:28 → 6WM 06-02 00:25
DX: K85.20 Alcohol induced acute pancreatitis without necrosis or infection (principal); N17.0 Acute kidney failure with tubular necrosis; F10.239 Alcohol dependence with withdrawal, unspecified; E87.1 Hypo-osmolality and hyponatremia; E87.2 Acidosis; Z68.41 Body mass index [BMI] 40.0-44.9, adult; E83.42 Hypomagnesemia; E83.39 Other disorders of phosphorus metabolism; I10 Essential (primary) hypertension; E78.5 Hyperlipidemia, unspecified; G89.4 Chronic pain syndrome; E87.6 Hypokalemia; E66.9 Obesity, unspecified; F17.210 Nicotine dependence, cigarettes, uncomplicated
CPT/HCPCS: 36415; 71045; 76705; 76775; 80048; 80053; 80076; 80307; 81001; 82043; 82150; 83036; 83615; 83690; 83735; 83880; 84100; 84484; 85025; 85610; 93005; 96374; 96375; 96376; 99285-25

== ENCOUNTER 2018-08-26 19:09 | Inpatient (IN) | payer OTHER ==
[2018-08-26] MEDS ORDERED: MULTIVITAMINS 10 ML, THIAMINE 100 MG, FOLIC ACID 1 MG, MAGNESIUM SULFATE 2 GM in SOD CH... IV (20:00)
[2018-08-26 20:01] LABS: ADD MAN DIFF? NO
[2018-08-26] MEDS: ONDANSETRON 4 MG INJ IV ×2 (20:01→22:37)
[2018-08-26] MEDS: LORAZEPAM 2 MG INJ IV (20:02)
[2018-08-26] MEDS: SOD CHLORIDE 0.9% 1,000 ML IV (20:02)
[2018-08-26] MEDS: morphine 4 MG/ML VIAL IV (20:02)
[2018-08-26 20:12] LABS: WHITE BLOOD COUNT 13.9 10^3/ul (4.8-10.8)
[2018-08-26 20:12] LABS: BASOPHILS % 0.2 % (0.0-2.0); EOSINOPHILS % 0.1 % (0.0-7.0); HEMATOCRIT 49.6 % (42.0-52.0); HEMOGLOBIN 17.9 g/dl (14.0-18.0); LYMPHOCYTES # 0.7 10^3/ul (0.8-2.9); LYMPHOCYTES % 4.9 % (15.0-51.0); MEAN CORPUSCULAR HEMOGLOBIN 32.4 pg (29.0-33.0); MEAN CORPUSCULAR HGB CONC 36.1 g/dl (32.0-37.0); MEAN CORPUSCULAR VOLUME 89.9 fl (82.0-101.0); MEAN PLATELET VOLUME 9.3 fl (7.4-10.4); MONOCYTE # 0.9 10^3/ul (0.3-0.9); MONOCYTES % 6.8 % (0.0-11.0); NEUTROPHIL # 12.1 10^3/ul (1.6-7.5); NEUTROPHILS % 87.1 % (39.0-77.0); PLATELET COUNT 294 10^3/UL (140-415); RED BLOOD COUNT 5.52 10^6/ul (4.70-6.10); RED CELL DISTRIBUTION WIDTH 12.6 % (11.5-14.5)
[2018-08-26 20:23] LABS: ALANINE AMINOTRANSFERASE 207 IU/L (13-69); ALBUMIN 5.3 g/dl (3.3-4.9); ALBUMIN/GLOBULIN RATIO 1.35; ALKALINE PHOSPHATASE 104 IU/L (42-121); ANION GAP 29 (5-13); ASPARTATE AMINO TRANSFERASE 263 IU/L (15-46); BILIRUBIN,INDIRECT 0.5 mg/dl (0-1.1); BILIRUBIN,TOTAL 0.5 mg/dl (0.2-1.3); BLOOD UREA NITROGEN 12 mg/dl (7-20); CALCIUM 10.9 mg/dl (8.4-10.2); CARBON DIOXIDE 13 mmol/L (21-31); CHLORIDE 96 mmol/L (97-110); CREATININE 0.69 mg/dl (0.61-1.24); Estimated GFR > 60 mL/min (>60); GLUCOSE 182 mg/dl (70-220); POTASSIUM 3.6 mmol/L (3.5-5.1); SODIUM 138 mmol/L (135-144); TOTAL PROTEIN 9.2 g/dl (6.1-8.1)
[2018-08-26 20:34] LABS: TROPONIN-I < 0.012 ng/ml (0.000-0.120)
[2018-08-26 20:40] LABS: INR 0.96; PROTIME 12.9 Sec (11.9-14.9)
[2018-08-26 20:41] LABS: PARTIAL THROMBOPLASTIN TIME 25.2 Sec (23.0-35.0)
[2018-08-26 20:43] LABS: LIPASE 7515 U/L (23-300)
[2018-08-26] MEDS: MULTIVITAMINS 10 ML, FOLIC ACID 1 MG, MAGNESIUM SULFATE 2 GM in SOD CHLORIDE 0.9% 1,000 ML IV (21:09)
[2018-08-26] MEDS: THIAMINE 100 MG TAB PO (21:10)
[2018-08-26] MEDS ORDERED: LORAZEPAM 2 MG INJ IV (22:00)
[2018-08-26] MEDS ORDERED: NACL 0.9% 3 ML SYG IV (22:00)
[2018-08-26] MEDS ORDERED: DOCUSATE SODIUM 100 MG CAP PO (22:00)
[2018-08-26] MEDS ORDERED: ACETAMINOPHEN 325 MG TAB PO (22:00)
[2018-08-26] MEDS: POTASSIUM CHLORIDE 20 MEQ in LACTATED RINGER'S 1,000 ML IV (22:00)
[2018-08-26] MEDS ORDERED: BISACODYL (EC) 5 MG TAB PO (22:00)
[2018-08-26] MEDS ORDERED: ONDANSETRON 4 MG INJ IV (22:00)
[2018-08-26] MEDS: morphine 2 MG INJ IV (22:37)
[2018-08-27] MEDS ORDERED: morphine 4 MG/ML VIAL IV (00:36)
[2018-08-27] MEDS: POTASSIUM CHLORIDE 20 MEQ in LACTATED RINGER'S 1,000 ML IV ×5 (01:44→21:38)
[2018-08-27] MEDS: HYDROmorphONE 0.5 MG/0.5 ML SYG IV (02:07)
[2018-08-27] MEDS: LORAZEPAM 2 MG INJ IV (02:10)
[2018-08-27] MEDS: HYDROmorphONE 1 MG/ML SYG IV ×7 (04:42→23:31)
[2018-08-27 05:25] LABS: ADD MAN DIFF? NO
[2018-08-27 05:30] LABS: BASOPHILS % 0.2 % (0.0-2.0); EOSINOPHILS % 0.1 % (0.0-7.0); HEMATOCRIT 44.7 % (42.0-52.0); HEMOGLOBIN 16.2 g/dl (14.0-18.0); LYMPHOCYTES % 8.6 % (15.0-51.0); MEAN CORPUSCULAR HEMOGLOBIN 32.5 pg (29.0-33.0); MEAN CORPUSCULAR HGB CONC 36.2 g/dl (32.0-37.0); MEAN CORPUSCULAR VOLUME 89.6 fl (82.0-101.0); MEAN PLATELET VOLUME 9.6 fl (7.4-10.4); MONOCYTE # 0.9 10^3/ul (0.3-0.9); MONOCYTES % 7.7 % (0.0-11.0); NEUTROPHIL # 9.4 10^3/ul (1.6-7.5); PLATELET COUNT 223 10^3/UL (140-415); RED BLOOD COUNT 4.99 10^6/ul (4.70-6.10); RED CELL DISTRIBUTION WIDTH 12.6 % (11.5-14.5)
[2018-08-27 05:30] LABS: WHITE BLOOD COUNT 11.3 10^3/ul (4.8-10.8)
[2018-08-27 05:49] LABS: HEMOGLOBIN A1C 5.4 % (0-5.9)
[2018-08-27 06:02] LABS: ALANINE AMINOTRANSFERASE 155 IU/L (13-69); ALBUMIN 4.5 g/dl (3.3-4.9); ALBUMIN/GLOBULIN RATIO 1.32; ALKALINE PHOSPHATASE 84 IU/L (42-121); ANION GAP 19 (5-13); ASPARTATE AMINO TRANSFERASE 160 IU/L (15-46); BILIRUBIN,INDIRECT 0.9 mg/dl (0-1.1); BILIRUBIN,TOTAL 0.9 mg/dl (0.2-1.3); BLOOD UREA NITROGEN 11 mg/dl (7-20); CALCIUM 9.8 mg/dl (8.4-10.2); CARBON DIOXIDE 22 mmol/L (21-31); CHLORIDE 99 mmol/L (97-110); CHOL/HDL RATIO 4.8 RATIO; CHOLESTEROL 271 mg/dl (100-200); CREATININE 0.62 mg/dl (0.61-1.24); Estimated GFR > 60 mL/min (>60); GLUCOSE 136 mg/dl (70-220); HDL CHOLESTEROL 56 mg/dl (28-63); LDL CHOLESTEROL,CALCULATED 178 mg/dl; SODIUM 140 mmol/L (135-144); TOTAL PROTEIN 7.9 g/dl (6.1-8.1); TRIGLYCERIDES 184 mg/dl (0-149)
[2018-08-27 06:09] LABS: MAGNESIUM 0.9 mg/dl (1.7-2.5)
[2018-08-27 06:24] LABS: THYROID STIMULATING HORMONE 0.613 MIU/L (0.465-4.680)
[2018-08-27] MEDS: CHLORDIAZEPOXIDE 25 MG CAP PO ×5 (06:41→20:16)
[2018-08-27 06:43] LABS: LIPASE 5150 U/L (23-300)
[2018-08-27] MEDS: MAGNESIUM SULFATE 4 GM/100 ML 100 ML IVPB (08:07)
[2018-08-27] MEDS: AMLODIPINE 10 MG TAB PO (08:12)
[2018-08-27] MEDS: THIAMINE 100 MG TAB PO (08:12)
[2018-08-27] MEDS: LISINOPRIL 20 MG TAB PO (08:12)
[2018-08-27] MEDS: FOLIC ACID 1 MG TAB PO (08:12)
[2018-08-27 10:00] LABS: ADD UMIC YES; UR AMORPHOUS CRYSTAL FEW /HPF (NONE SEEN); UR ASCORBIC ACID 40 mg/dL (NEGATIVE); UR BILIRUBIN (Dip) 1+ mg/dL (NEGATIVE); UR BLOOD (Dip) NEGATIVE (NEGATIVE); UR CLARITY CLOUDY (CLEAR); UR COLOR AMBER (YELLOW); UR GLUCOSE (Dip) NEGATIVE (NEGATIVE); UR GRANULAR CAST FEW /HPF (NONE SEEN); UR HYALINE CAST FEW /HPF (NONE SEEN); UR KETONES (Dip) TRACE mg/dL (NEGATIVE); UR LEUKOCYTE ESTERASE (Dip) NEGATIVE Leu/ul (NEGATIVE); UR MUCUS MANY /HPF (NONE SEEN); UR NITRITE (Dip) NEGATIVE (NEGATIVE); UR RBC 11 /HPF (0-5); UR TOTAL PROTEIN (Dip) 3+ mg/dl (NEGATIVE); UR UROBILINOGEN (Dip) 1+ mg/dL (NEGATIVE); UR WBC 3 /HPF (0-5)
[2018-08-27] MEDS: MAGNESIUM SULFATE 2 GM/50 ML 50 ML IVPB (11:56)
[2018-08-28] MEDS: POTASSIUM CHLORIDE 20 MEQ in LACTATED RINGER'S 1,000 ML IV ×4 (02:41→20:45)
[2018-08-28] MEDS: HYDROmorphONE 1 MG/ML SYG IV ×8 (02:45→23:41)
[2018-08-28 05:50] LABS: ADD MAN DIFF? NO
[2018-08-28 05:55] LABS: BASOPHILS % 0.3 % (0.0-2.0); EOSINOPHILS # 0.2 10^3/ul (0.0-0.5); EOSINOPHILS % 3.2 % (0.0-7.0); HEMATOCRIT 38.9 % (42.0-52.0); HEMOGLOBIN 13.5 g/dl (14.0-18.0); LYMPHOCYTES # 0.8 10^3/ul (0.8-2.9); LYMPHOCYTES % 12.8 % (15.0-51.0); MEAN CORPUSCULAR HEMOGLOBIN 32.2 pg (29.0-33.0); MEAN CORPUSCULAR HGB CONC 34.7 g/dl (32.0-37.0); MEAN CORPUSCULAR VOLUME 92.8 fl (82.0-101.0); MEAN PLATELET VOLUME 10.1 fl (7.4-10.4); MONOCYTE # 0.4 10^3/ul (0.3-0.9); MONOCYTES % 7.1 % (0.0-11.0); NEUTROPHIL # 4.5 10^3/ul (1.6-7.5); NEUTROPHILS % 76.3 % (39.0-77.0); PLATELET COUNT 144 10^3/UL (140-415); RED BLOOD COUNT 4.19 10^6/ul (4.70-6.10); RED CELL DISTRIBUTION WIDTH 12.8 % (11.5-14.5)
[2018-08-28 06:22] LABS: ALBUMIN/GLOBULIN RATIO 1.15; Estimated GFR > 60 mL/min (>60)
[2018-08-28 06:33] LABS: ALANINE AMINOTRANSFERASE 104 IU/L (13-69); ALBUMIN 3.8 g/dl (3.3-4.9); ALKALINE PHOSPHATASE 82 IU/L (42-121); ANION GAP 14 (5-13); ASPARTATE AMINO TRANSFERASE 105 IU/L (15-46); BILIRUBIN,INDIRECT 0.8 mg/dl (0-1.1); BILIRUBIN,TOTAL 0.8 mg/dl (0.2-1.3); BLOOD UREA NITROGEN 9 mg/dl (7-20); CARBON DIOXIDE 25 mmol/L (21-31); CHLORIDE 101 mmol/L (97-110); CREATININE 0.51 mg/dl (0.61-1.24); GLUCOSE 109 mg/dl (70-220); POTASSIUM 3.9 mmol/L (3.5-5.1); SODIUM 140 mmol/L (135-144); TOTAL PROTEIN 7.1 g/dl (6.1-8.1)
[2018-08-28 07:51] LABS: LIPASE 1346 U/L (23-300)
[2018-08-28] MEDS: FOLIC ACID 1 MG TAB PO (08:33)
[2018-08-28] MEDS: CHLORDIAZEPOXIDE 25 MG CAP PO ×3 (08:33→20:44)
[2018-08-28] MEDS: LISINOPRIL 20 MG TAB PO (08:33)
[2018-08-28] MEDS: THIAMINE 100 MG TAB PO (08:34)
[2018-08-28] MEDS: AMLODIPINE 10 MG TAB PO (08:34)
[2018-08-28 08:46] LABS: MAGNESIUM 1.9 mg/dl (1.7-2.5)
[2018-08-28] MEDS ORDERED: CHLORDIAZEPOXIDE 25 MG CAP PO (09:00)
[2018-08-29] MEDS: POTASSIUM CHLORIDE 20 MEQ in LACTATED RINGER'S 1,000 ML IV ×6 (00:30→23:42)
[2018-08-29] MEDS: HYDROmorphONE 1 MG/ML SYG IV ×3 (02:43→08:53)
[2018-08-29 06:06] LABS: ADD MAN DIFF? NO
[2018-08-29 06:16] LABS: BASOPHILS % 0.4 % (0.0-2.0); EOSINOPHILS # 0.2 10^3/ul (0.0-0.5); EOSINOPHILS % 3.6 % (0.0-7.0); LYMPHOCYTES # 0.9 10^3/ul (0.8-2.9); LYMPHOCYTES % 15.6 % (15.0-51.0); MEAN CORPUSCULAR HEMOGLOBIN 32.6 pg (29.0-33.0); MEAN CORPUSCULAR HGB CONC 35.1 g/dl (32.0-37.0); MEAN CORPUSCULAR VOLUME 92.7 fl (82.0-101.0); MONOCYTE # 0.4 10^3/ul (0.3-0.9); MONOCYTES % 7.7 % (0.0-11.0); NEUTROPHIL # 4.1 10^3/ul (1.6-7.5); NEUTROPHILS % 72.3 % (39.0-77.0); PLATELET COUNT 157 10^3/UL (140-415); RED BLOOD COUNT 3.99 10^6/ul (4.70-6.10); RED CELL DISTRIBUTION WIDTH 12.2 % (11.5-14.5)
[2018-08-29 06:16] LABS: WHITE BLOOD COUNT 5.6 10^3/ul (4.8-10.8)
[2018-08-29 06:53] LABS: MAGNESIUM 1.4 mg/dl (1.7-2.5)
[2018-08-29 07:22] LABS: ALANINE AMINOTRANSFERASE 93 IU/L (13-69); ALBUMIN 4.1 g/dl (3.3-4.9); ALBUMIN/GLOBULIN RATIO 1.24; ALKALINE PHOSPHATASE 127 IU/L (42-121); AMYLASE 82 U/L (11-123); ANION GAP 18 (5-13); ASPARTATE AMINO TRANSFERASE 134 IU/L (15-46); BILIRUBIN,INDIRECT 0.7 mg/dl (0-1.1); BILIRUBIN,TOTAL 0.7 mg/dl (0.2-1.3); BLOOD UREA NITROGEN 7 mg/dl (7-20); CALCIUM 9.4 mg/dl (8.4-10.2); CARBON DIOXIDE 25 mmol/L (21-31); CHLORIDE 94 mmol/L (97-110); CREATININE 0.44 mg/dl (0.61-1.24); Estimated GFR > 60 mL/min (>60); GLUCOSE 85 mg/dl (70-220); LIPASE 1283 U/L (23-300); POTASSIUM 4.4 mmol/L (3.5-5.1); SODIUM 137 mmol/L (135-144); TOTAL PROTEIN 7.4 g/dl (6.1-8.1)
[2018-08-29] MEDS: AMLODIPINE 10 MG TAB PO (08:18)
[2018-08-29] MEDS: FOLIC ACID 1 MG TAB PO (08:18)
[2018-08-29] MEDS: THIAMINE 100 MG TAB PO (08:18)
[2018-08-29] MEDS: CHLORDIAZEPOXIDE 25 MG CAP PO ×3 (08:22→20:44)
[2018-08-29] MEDS: MAGNESIUM SULFATE 1 GM/D5W 100 ML IVPB ×2 (08:53→12:51)
[2018-08-29] MEDS ORDERED: CHLORDIAZEPOXIDE 25 MG CAP PO (09:00)
[2018-08-29] MEDS ORDERED: LORAZEPAM 2 MG INJ IV (12:00)
[2018-08-29] MEDS: LISINOPRIL 20 MG TAB PO (12:17)
[2018-08-29] MEDS: morphine 4 MG/ML VIAL IV ×3 (12:23→20:46)
[2018-08-29] MEDS: hydrALAzine 20 MG INJ IV (20:56)
[2018-08-30] MEDS: morphine 4 MG/ML VIAL IV ×6 (00:48→22:27)
[2018-08-30] MEDS: hydrALAzine 20 MG INJ IV (03:48)
[2018-08-30] MEDS: POTASSIUM CHLORIDE 20 MEQ in LACTATED RINGER'S 1,000 ML IV ×2 (04:55→13:16)
[2018-08-30 06:34] LABS: ADD MAN DIFF? NO
[2018-08-30 06:36] LABS: WHITE BLOOD COUNT 4.8 10^3/ul (4.8-10.8)
[2018-08-30 06:36] LABS: BASOPHILS % 0.4 % (0.0-2.0); EOSINOPHILS # 0.2 10^3/ul (0.0-0.5); EOSINOPHILS % 3.4 % (0.0-7.0); HEMATOCRIT 39.7 % (42.0-52.0); HEMOGLOBIN 13.8 g/dl (14.0-18.0); LYMPHOCYTES # 0.9 10^3/ul (0.8-2.9); MEAN CORPUSCULAR HGB CONC 34.8 g/dl (32.0-37.0); MEAN CORPUSCULAR VOLUME 92.1 fl (82.0-101.0); MEAN PLATELET VOLUME 9.9 fl (7.4-10.4); MONOCYTE # 0.5 10^3/ul (0.3-0.9); MONOCYTES % 10.1 % (0.0-11.0); NEUTROPHIL # 3.2 10^3/ul (1.6-7.5); NEUTROPHILS % 67.7 % (39.0-77.0); PLATELET COUNT 223 10^3/UL (140-415); RED BLOOD COUNT 4.31 10^6/ul (4.70-6.10); RED CELL DISTRIBUTION WIDTH 12.2 % (11.5-14.5)
[2018-08-30 07:02] LABS: MAGNESIUM 1.6 mg/dl (1.7-2.5)
[2018-08-30 07:02] LABS: PHOSPHORUS 4.1 mg/dl (2.5-4.9)
[2018-08-30 07:04] LABS: ANION GAP 18 (5-13); BLOOD UREA NITROGEN 7 mg/dl (7-20); CALCIUM 9.6 mg/dl (8.4-10.2); CARBON DIOXIDE 24 mmol/L (21-31); CHLORIDE 93 mmol/L (97-110); CREATININE 0.44 mg/dl (0.61-1.24); Estimated GFR > 60 mL/min (>60); GLUCOSE 96 mg/dl (70-220); POTASSIUM 4.2 mmol/L (3.5-5.1); SODIUM 135 mmol/L (135-144)
[2018-08-30 07:22] LABS: LIPASE 1664 U/L (23-300)
[2018-08-30] MEDS: FOLIC ACID 1 MG TAB PO (09:24)
[2018-08-30] MEDS: AMLODIPINE 10 MG TAB PO (09:24)
[2018-08-30] MEDS: CHLORDIAZEPOXIDE 25 MG CAP PO ×3 (09:24→21:15)
[2018-08-30] MEDS: THIAMINE 100 MG TAB PO (09:25)
[2018-08-30] MEDS: LISINOPRIL 20 MG TAB PO (09:25)
[2018-08-30] MEDS: MAGNESIUM SULFATE 2 GM/50 ML 50 ML IVPB (16:15)
[2018-08-30] MEDS: POTASSIUM CHLORIDE 10 MEQ in DEXTROSE 5%-0.9% NACL 1,000 ML IV ×2 (16:15→23:03)
[2018-08-31] MEDS: ACETAMINOPHEN 325 MG TAB PO (01:35)
[2018-08-31 05:27] LABS: ADD MAN DIFF? NO
[2018-08-31 05:41] LABS: WHITE BLOOD COUNT 4.2 10^3/ul (4.8-10.8)
[2018-08-31 05:41] LABS: BASOPHILS % 0.5 % (0.0-2.0); EOSINOPHILS # 0.2 10^3/ul (0.0-0.5); EOSINOPHILS % 4.3 % (0.0-7.0); LYMPHOCYTES # 0.9 10^3/ul (0.8-2.9); LYMPHOCYTES % 20.5 % (15.0-51.0); MEAN CORPUSCULAR HEMOGLOBIN 32.7 pg (29.0-33.0); MEAN CORPUSCULAR HGB CONC 35.1 g/dl (32.0-37.0); MEAN CORPUSCULAR VOLUME 93.2 fl (82.0-101.0); MEAN PLATELET VOLUME 9.4 fl (7.4-10.4); MONOCYTE # 0.6 10^3/ul (0.3-0.9); MONOCYTES % 13.1 % (0.0-11.0); NEUTROPHIL # 2.6 10^3/ul (1.6-7.5); NEUTROPHILS % 61.1 % (39.0-77.0); PLATELET COUNT 231 10^3/UL (140-415); RED BLOOD COUNT 3.97 10^6/ul (4.70-6.10); RED CELL DISTRIBUTION WIDTH 12.2 % (11.5-14.5)
[2018-08-31] MEDS: morphine 4 MG/ML VIAL IV ×3 (05:44→17:44)
[2018-08-31] MEDS: POTASSIUM CHLORIDE 10 MEQ in DEXTROSE 5%-0.9% NACL 1,000 ML IV ×2 (05:45→17:42)
[2018-08-31 06:05] LABS: MAGNESIUM 1.8 mg/dl (1.7-2.5)
[2018-08-31 06:05] LABS: PHOSPHORUS 4.4 mg/dl (2.5-4.9)
[2018-08-31 06:22] LABS: ANION GAP 14 (5-13); BLOOD UREA NITROGEN 8 mg/dl (7-20); CARBON DIOXIDE 23 mmol/L (21-31); CHLORIDE 99 mmol/L (97-110); CREATININE 0.49 mg/dl (0.61-1.24); Estimated GFR > 60 mL/min (>60); GLUCOSE 118 mg/dl (70-220); LIPASE 1282 U/L (23-300); POTASSIUM 3.7 mmol/L (3.5-5.1); SODIUM 136 mmol/L (135-144)
[2018-08-31] MEDS: LISINOPRIL 20 MG TAB PO (09:26)
[2018-08-31] MEDS: THIAMINE 100 MG TAB PO (09:27)
[2018-08-31] MEDS: CHLORDIAZEPOXIDE 25 MG CAP PO ×3 (09:27→20:00)
[2018-08-31] MEDS: FOLIC ACID 1 MG TAB PO (09:27)
[2018-08-31] MEDS: AMLODIPINE 10 MG TAB PO (09:27)
[2018-08-31 11:47] LABS: ADD MAN DIFF? NO
[2018-08-31 11:49] LABS: BASOPHILS % 0.5 % (0.0-2.0); EOSINOPHILS # 0.2 10^3/ul (0.0-0.5); EOSINOPHILS % 4.1 % (0.0-7.0); HEMATOCRIT 39.2 % (42.0-52.0); HEMOGLOBIN 13.3 g/dl (14.0-18.0); LYMPHOCYTES # 0.7 10^3/ul (0.8-2.9); LYMPHOCYTES % 16.7 % (15.0-51.0); MEAN CORPUSCULAR HEMOGLOBIN 32.1 pg (29.0-33.0); MEAN CORPUSCULAR HGB CONC 33.9 g/dl (32.0-37.0); MEAN CORPUSCULAR VOLUME 94.7 fl (82.0-101.0); MEAN PLATELET VOLUME 9.1 fl (7.4-10.4); MONOCYTE # 0.5 10^3/ul (0.3-0.9); MONOCYTES % 11.4 % (0.0-11.0); NEUTROPHIL # 2.9 10^3/ul (1.6-7.5); NEUTROPHILS % 67.1 % (39.0-77.0); PLATELET COUNT 237 10^3/UL (140-415); RED BLOOD COUNT 4.14 10^6/ul (4.70-6.10); RED CELL DISTRIBUTION WIDTH 12.3 % (11.5-14.5)
[2018-08-31 11:49] LABS: WHITE BLOOD COUNT 4.4 10^3/ul (4.8-10.8)
[2018-08-31] MEDS: morphine LIQ (10 MG/5 ML) CUP PO (22:29)
[2018-09-01] MEDS: morphine LIQ (10 MG/5 ML) CUP PO ×4 (05:49→21:37)
[2018-09-01 06:47] LABS: LIPASE 1039 U/L (23-300)
[2018-09-01 07:05] LABS: ALANINE AMINOTRANSFERASE 88 IU/L (13-69); ALBUMIN 4.1 g/dl (3.3-4.9); ALBUMIN/GLOBULIN RATIO 1.17; ALKALINE PHOSPHATASE 137 IU/L (42-121); ANION GAP 13 (5-13); ASPARTATE AMINO TRANSFERASE 195 IU/L (15-46); BILIRUBIN,INDIRECT 0.1 mg/dl (0-1.1); BILIRUBIN,TOTAL 0.1 mg/dl (0.2-1.3); BLOOD UREA NITROGEN 3 mg/dl (7-20); CALCIUM 9.8 mg/dl (8.4-10.2); CARBON DIOXIDE 24 mmol/L (21-31); CHLORIDE 102 mmol/L (97-110); CREATININE 0.57 mg/dl (0.61-1.24); Estimated GFR > 60 mL/min (>60); GLUCOSE 122 mg/dl (70-220); MAGNESIUM 1.7 mg/dl (1.7-2.5); POTASSIUM 3.9 mmol/L (3.5-5.1); SODIUM 139 mmol/L (135-144); TOTAL PROTEIN 7.6 g/dl (6.1-8.1)
[2018-09-01] MEDS: AMLODIPINE 10 MG TAB PO (08:16)
[2018-09-01] MEDS: LISINOPRIL 20 MG TAB PO (08:16)
[2018-09-01] MEDS: POTASSIUM CHLORIDE 10 MEQ in DEXTROSE 5%-0.9% NACL 1,000 ML IV ×2 (08:16→20:58)
[2018-09-01] MEDS: FOLIC ACID 1 MG TAB PO (08:17)
[2018-09-01] MEDS: CHLORDIAZEPOXIDE 25 MG CAP PO ×2 (08:17→12:46)
[2018-09-02] MEDS: POTASSIUM CHLORIDE 10 MEQ in DEXTROSE 5%-0.9% NACL 1,000 ML IV ×2 (00:57→13:34)
[2018-09-02] MEDS: morphine LIQ (10 MG/5 ML) CUP PO ×2 (05:29→11:30)
[2018-09-02 05:45] LABS: ADD MAN DIFF? NO
[2018-09-02 06:03] LABS: WHITE BLOOD COUNT 4.3 10^3/ul (4.8-10.8)
[2018-09-02 06:03] LABS: BASOPHILS % 0.2 % (0.0-2.0); EOSINOPHILS # 0.2 10^3/ul (0.0-0.5); EOSINOPHILS % 4.9 % (0.0-7.0); HEMATOCRIT 36.2 % (42.0-52.0); HEMOGLOBIN 12.4 g/dl (14.0-18.0); LYMPHOCYTES # 0.9 10^3/ul (0.8-2.9); LYMPHOCYTES % 21.3 % (15.0-51.0); MEAN CORPUSCULAR HEMOGLOBIN 32.4 pg (29.0-33.0); MEAN CORPUSCULAR HGB CONC 34.3 g/dl (32.0-37.0); MEAN CORPUSCULAR VOLUME 94.5 fl (82.0-101.0); MONOCYTE # 0.6 10^3/ul (0.3-0.9); MONOCYTES % 14.6 % (0.0-11.0); NEUTROPHIL # 2.5 10^3/ul (1.6-7.5); NEUTROPHILS % 58.5 % (39.0-77.0); PLATELET COUNT 313 10^3/UL (140-415); RED BLOOD COUNT 3.83 10^6/ul (4.70-6.10); RED CELL DISTRIBUTION WIDTH 12.3 % (11.5-14.5)
[2018-09-02 06:30] LABS: ALANINE AMINOTRANSFERASE 113 IU/L (13-69); ALBUMIN 3.9 g/dl (3.3-4.9); ALBUMIN/GLOBULIN RATIO 1.21; ALKALINE PHOSPHATASE 112 IU/L (42-121); ANION GAP 13 (5-13); ASPARTATE AMINO TRANSFERASE 212 IU/L (15-46); BLOOD UREA NITROGEN 4 mg/dl (7-20); CALCIUM 9.9 mg/dl (8.4-10.2); CARBON DIOXIDE 25 mmol/L (21-31); CHLORIDE 103 mmol/L (97-110); CREATININE 0.54 mg/dl (0.61-1.24); Estimated GFR > 60 mL/min (>60); GLUCOSE 118 mg/dl (70-220); LIPASE 968 U/L (23-300); SODIUM 141 mmol/L (135-144); TOTAL PROTEIN 7.1 g/dl (6.1-8.1)
[2018-09-02] MEDS: FOLIC ACID 1 MG TAB PO (08:04)
[2018-09-02] MEDS: AMLODIPINE 10 MG TAB PO (08:04)
[2018-09-02] MEDS: LISINOPRIL 20 MG TAB PO (08:05)
== END 2018-09-02 14:43 | disposition home or self-care (01) | DRG 439 ==
LOC: PP2 08-30 02:56 → E/R 19:09 → PP2 08-29 22:12 → 6WM 22:23
DX: K85.20 Alcohol induced acute pancreatitis without necrosis or infection (principal); Z68.41 Body mass index [BMI] 40.0-44.9, adult; E87.2 Acidosis; K86.0 Alcohol-induced chronic pancreatitis; E66.9 Obesity, unspecified; F10.129 Alcohol abuse with intoxication, unspecified; Y90.7 Blood alcohol level of 200-239 mg/100 ml; I10 Essential (primary) hypertension; E78.5 Hyperlipidemia, unspecified; K70.0 Alcoholic fatty liver; E86.0 Dehydration; Z71.3 Dietary counseling and surveillance
CPT/HCPCS: 36415; 71045; 74176; 80048; 80053; 80061; 80307; 81001; 82150; 83036; 83690; 83735; 84100; 84443; 84484; 85025; 85610; 85730; 93005; 96374; 96375; 99285-25